=== PATIENT | male | born 1950 | race Caucasian/White ===

== ENCOUNTER 2016-06-17 15:58 | Emergency (ER) | payer OTHER ==
[~2016-06-17] VITALS: Ht 175.3 cm; Wt 109.1 kg
[~2016-06-17 15:58] MED LIST: ALLO300T2 PO; ASPI-973 PO; ATEN25TA PO; Aspirin PO; LACT10SO PO; LISI-571 PO; NITR0.4T6 SL; OMEP20TA86 PO; SILD20TA14 PO
[2016-06-17 16:53] VITALS: BP 174/87; PULSE 79; RESP 16; O2SAT 98
[2016-06-17 17:58] LABS: BASOPHILS % (AUTO) 0.2 % (0-3); EOSINOPHILS % (AUTO) 0.5 % (0-5); MONOCYTES % (AUTO) 6.4 % (4-12); Mean Corpuscular Hemoglobin 37.4 pg (27.0-35.0); Mean Corpuscular Volume 102.8 fL (81-100); NEUTROPHILS % (AUTO) 73.1 % (40-74); Platelet Count 77 bil/L (150-400)
[2016-06-17 19:04] VITALS: BP 164/80; PULSE 79; RESP 21; O2SAT 98
--- NOTE | 2016-06-17 19:21 | ED.REPORT ---
HPI-General Illness Date of Service Jun 17, 2016 ED Provider: Dr. Anson Mccormick D.O. A 65 year old male with a medical history including liver cirrhosis, diabetes, AK, and CAD presents to the ED from his cardiologists office with high blood sugars (504 at home) onset two days ago. Associated symptoms include shakiness, chills, nausea, vomiting, increased thirst, reduced urination, and malaise. The patient denies fever, sore throat, cough, earache, chest pain, or bleeding. He transitioned from prediabetic to completely diabetic two weeks ago, with no medical follow-up for this. Nursing Notes Stated Complaint: ELEVATED BLOOD SUGAR Chief Complaint: General Complaint Nursing Notes Reviewed: Yes Allergies: Coded Allergies: No Known Allergies (Verified Allergy, Unknown, 01/09/16) Scheduled ([Aspirin]) 81 MG TABEC 81 MG PO DAILY Allopurinol (Allopurinol) 300 Mg Tablet 300 MG PO DAILY Aspirin (Aspirin) 81 Mg Tablet 81 MG PO DAILY Atenolol (Atenolol) 25 Mg Tablet 25 MG PO BID Lactulose (Lactulose) 10 Gm/15 Ml Solution 10 GM PO BID Lisinopril (Lisinopril) 5 Mg Tablet 10 MG PO DAILY Nitroglycerin SL (Nitroglycerin SL) 0.4 Mg Tab.subl 0.4 MG SL PRN Omeprazole (Omeprazole) 20 Mg Tablet.dr 20 MG PO DAILY Scheduled PRN Sildenafil Citrate (Sildenafil) 20 Mg Tablet 20 MG PO DIRECTED PRN PRN for sexual activity General Time Seen by MD: 19:21 Chief Complaint Other (High Blood Sugar) Hx Obtained From: Patient Arrived By: Walk-in Sudden in Onset?: No Onset Occurred: 2 days ago Symptom Duration: Since onset Severity: Current: No pain currently Severity: Maximum: No pain Associated with: Reports: Nausea, Vomiting, Denies: Chest pain, Fever Pertinent Negative: Relieved by nothing Context Related History: Reports Coronary artery disease, Reports Diabetes mellitus Recent Healthcare: Recent doctor visit Similar Sx Previous: No Past Medical History Past Medical History Hyperbilirubinemia and transminitis Macrocytic anemia Diabetes [place] Gout Alcohol withdrawal Thrombocytopenia and splenomegaly Right coronary artery disease Liver cirrhosis Reports: Hyperlipidemia, Hypertension Past Surgical History Cardiac stents Reports: CABG Smoking History Never Smoker Social History Alcohol Use: In recovery Drug Use: Denies drug use Other Social History: Ambulatory Status Independent Review of Systems + high blood sugars (504), increased thirst Full Review of Systems Constitutional: Reports: Chills, Malaise, Denies: Fever Ears / Nose / Throat: Denies: Earache bilateral, Sore throat Respiratory: Denies: Non-productive cough Cardiovascular: Denies: Chest pain GI: Reports: Nausea, Vomiting Male: Reports Urination decreased Hematologic: Denies Bleeding Neurologic: Reports: Shaking Complete sys rev & neg: except as marked. Physical Exam Vital Signs Vital Signs Date Time Temp Pulse Resp B/P Pulse Ox O2 Delivery O2 Flow Rate FiO2 06/18/16 00:54 36.9 75 14 144/68 98 Room Air 06/17/16 23:10 37.4 69 11 147/72 98 Room Air 06/17/16 21:06 37.3 70 12 151/67 97 Room Air 06/17/16 19:04 37.5 79 21 164/80 98 Room Air 06/17/16 16:53 36.9 79 16 174/87 98 Room Air Initial VS: Reviewed Head / Eyes: Atraumatic, Normocephalic Neck: Supple, Full range of motion Respiratory: Breath sounds normal, Clear to auscultation, No respiratory distress Extremities: Vascular intact, Neuro intact, No swelling Skin: Warm, Dry, No cyanosis Neurologic: Alert, Oriented, Nonfocal Psychiatric: Mood/affect normal, Behavior normal, Normal thought content General/Constitutional: Awake, Alert, No acute distress ENT: Airway patent Mouth: Positive: Mucous membranes dry Cardiovascular: Regular rhythm, Heart sounds NL Heart Rate / Rhythm: Positive: Tachycardia Abdomen: Soft, Non-tender Organomegaly / Mass / Hernia: Negative: Hepatomegaly Interpretation & Diagnostics Lab Results Interpretation Result Diagram: 06/17/16 1755 06/17/16 2323 Test 06/17/16 17:55 06/17/16 20:20 06/17/16 21:42 06/17/16 21:45 White Blood Count 5.5th/mm3 (3.8-10.1) Red Blood Count 3.21mil/mm3 (4.40-5.80) Hemoglobin 12.0g/dL (13.8-17.2) Hematocrit 33.0% (41.0-50.0) Mean Corpuscular Volume 102.8fL (81-100) Mean Corpuscular Hemoglobin 37.4pg (27.0-35.0) Mean Corpuscular Hemoglobin Concent 36.4% (32.0-37.0) Red Cell Distribution Width 12.0% (12.3-15.4) Platelet Count 77bil/L (150-400) Neutrophils (%) (Auto) 73.1% (40-74) Lymphocytes (%) (Auto) 19.6% (14-46) Monocytes (%) (Auto) 6.4% (4-12) Eosinophils (%) (Auto) 0.5% (0-5) Basophils (%) (Auto) 0.2% (0-3) Total Bilirubin 6.5mg/dL (0.0-1.2) Aspartate Amino Transf (AST/SGOT) 102U/L (0-50) Alanine Aminotransferase (ALT/SGPT) 53U/L (0-44) Alkaline Phosphatase 108U/L (25-160) Total Protein 6.4g/dL (6.4-8.4) Albumin 3.5g/dL (3.4-5.0) Ketones Negative (Negative) Urine Color Dark yellow (YELLOW) Urine Appearance Clear (CLEAR,HAZY) Urine pH 6.0 (5.0-8.0) Urine Specific [place] 1.010 (1.003-1.035) Urine Protein Negativemg/dL (NEG,TRACE) Urine Glucose (UA) 1000mg/dL (NEGATIVE) Urine Ketones Negativemg/dL (NEGATIVE) Urine Occult Blood Negative (NEGATIVE) Urine Nitrite Negative (NEGATIVE) Urine Bilirubin Negative (NEGATIVE) Urine Urobilinogen Normalmg/dL (NORMAL) Urine Leukocyte Esterase Negative (NEGATIVE) Urine RBC 0-2/hpf (0-2) Urine WBC 0-5/hpf (0-5) Urine Epithelial Cells Occasional/hpf (NONE-MOD) Urine Crystals None seen (NONE SEEN) Urine Bacteria None/hpf (NONE-FEW) Urine Hyaline Casts None/lpf (NONE) Urine Granular Casts None seen (NONE SEEN) Urine Waxy Casts None seen (NONE SEEN) Urine Red Blood Cell Casts None seen (NONE SEEN) Urine White Blood Cell Casts None seen (NONE SEEN) Urine Mucus None seen (None Seen) Urine Trichomonas None seen (NONE SEEN) Urine Yeast None (NONE SEEN) Urinalysis Comment None Urine Culture Reflexed Not indicated Troponin T 0.010ug/L (0.0-0.011) Lactic Acid Level 3.1mmol/L (0.4-2.0) Test 06/17/16 23:23 Sodium Level 135mEq/L (134-144) Potassium Level 3.7mEq/L (3.5-5.2) Chloride Level 98mEq/L (97-108) Carbon Dioxide Level 22mmol/L (18-29) Blood Urea Nitrogen 7mg/dL (8-27) Creatinine 0.18mg/dL (0.76-1.27) Estimat Glomerular Filtration Rate 580mL/min (>59) Glucose Level 321mg/dL (60-99) Calcium Level 8.0mg/dL (8.5-10.1) Hold Luna Top Tube Received (Received) ECG Interpretation ECG Interpretation: Time: 19:44 Interpreted by: ED physician Normal ECG Interpretation: Normal ECG w/ rate of... (73) Re-Eval/Medical Decision Med Decision/Clinical Course Type II diabetic presents hyperglycemic. Evidently's been borderline diabetic for while and today's blood sugars were over 500. He was sent in from his offset platemaker for management. He is found to be dehydrated and hyperglycemic however he was not in DKA. He was aggressively fluid resuscitated and was some insulin as well as blood sugar came down nicely. He never developed an anion gap. His lactic acidosis resolved. I consulted with his primary care office. They will be in touch with him tomorrow to make a game plan. He is can start following diabetic diet. Exercise also strongly recommended. He was discharged in stable condition. Serial troponins were drawn there are negative. AK ruled out. No infectious source. I think she can do well with outpatient treatment. Source of Hx: Old records Time of Eval: 00:10 Patient Status: Condition improved Re-Evaluation/Progress Note: Discussed with patient lab results, diagnosis, and plan for discharge. Follow-up and return to the ER instructions given. Patient agrees with plan for care and all questions were addressed. Consultation : Referral / Consult Name: Joey Burns MD Consulted With: Primary care physician Call Returned at: 21:52 Enterprise Account Manager: Will see in office, Agrees with kelvin, Agrees with plan Note: Discussed patient's case with physician continuous pillowcase cutter for Dr. Dukes. Agrees with plan to discharge to be seen tomorrow. Counseled Regarding: Diagnosis, Lab results, Need for follow-up, When/why to return to ED Discharge & Departure Primary Impression: Hyperglycemia due to type 2 diabetes mellitus Additional Impression: Dehydration Disposition: Home Discharge Condition All VS Reviewed: Yes Condition: Stable Patient Instructions: Dehydration (ED), Diabetes Mellitus Type 2 in Adults (DC) Additional Instructions: The laboratory work confirms that you have diabetes. You were significantly dehydrated. You need to drink plenty of liquids without carbohydrates. Youi need to follow the diabetic diet closely. Exercise and weight loss will help. I consulted with Dr. Burns who is continuous pillowcase cutter for Dr. Dukes. The office will contact you tomorrow for follow-up. You will need to be on diabetic medications and most likely have a glucometer and diabetic training. If you have not heard from the office by noon then call the office yourself. . Come back to the emergency department if you have any problems or any worsening or new symptoms. Read the after care instructions given. Referrals: Martha Dukes MD (PCP) Scribe Attestation Portions of this note were transcribed by Ximena Vogel. I, Dr. Mccormick, personally performed the history, physical exam, and medical decision-making; I reviewed and confirmed the accuracy of the information in the transcribed note. Signed by: Eula Osullivan, 06/18/2016, 02:18 copies to: Martha Dukes MD, Todd P DO Jun 17, 2016 19:21 XIMENA VOGEL Jun 17, 2016 20:12
[2016-06-17] MEDS: 0.9% Sodium Chloride 1,000 ML IV SCH ×4 (19:29→21:52)
[2016-06-17 19:58] LABS: TROPONIN T < 0.010 ug/L (0.0-0.011)
[2016-06-17 20:44] LABS: COLOR,URINE DARK YELLOW (YELLOW)
[2016-06-17 20:45] LABS: APPEARANCE,URINE CLEAR (CLEAR,HAZY); OCCULT BLOOD,URINE NEGATIVE (NEGATIVE); UROBILINOGEN,URINE NORMAL (NORMAL)
[2016-06-17 21:06] VITALS: BP 151/67; PULSE 70; RESP 12; O2SAT 97
[2016-06-17] MEDS ORDERED: Insulin Human REGular-Omnicell 100 Unit/mL IV ONE (21:45)
[2016-06-17] MEDS ORDERED: 0.9% Sodium Chloride 1,000 ML IV ONE (22:55)
[2016-06-17 23:10] VITALS: BP 147/72; PULSE 69; RESP 11; O2SAT 98
[2016-06-18 00:54] VITALS: BP 144/68; PULSE 75; RESP 14; O2SAT 98
== END 2016-06-18 00:55 | disposition home or self-care (01) ==
LOC: SED 15:58
DX: E11.65 Type 2 diabetes mellitus with hyperglycemia (principal); E86.0 Dehydration; I25.2 Old myocardial infarction; I25.10 Atherosclerotic heart disease of native coronary artery without angina pectoris; E78.5 Hyperlipidemia, unspecified; I10 Essential (primary) hypertension; Z87.19 Personal history of other diseases of the digestive system; Z95.1 Presence of aortocoronary bypass graft; Z95.818 Presence of other cardiac implants and grafts; Z79.82 Long term (current) use of aspirin
CPT/HCPCS: 36415; 80048; 80053; 81000; 82009; 83605; 84484; 85025; 93005; 96361; 96374; 99285; J1815; J7030

== ENCOUNTER 2016-07-14 14:03 | Emergency (ER) | payer OTHER ==
[~2016-07-14] VITALS: Ht 175.3 cm; Wt 104.5 kg
[2016-07-14 14:10] VITALS: BP 162/84; PULSE 83; RESP 20; O2SAT 98
--- NOTE | 2016-07-14 16:04 | ED.REPORT ---
HPI-Extremity Problem Lower Date of Service Jul 14, 2016 ED Provider: Doc,Ed MD History of Present Illness: pain is in his shoulders and both hips for a week. requesting pain meds so he can sleep. tolerable during the day but worse at night. primary care is Dr. Dukes . taking gil tylenol pm. no fall or injury. works as a business project manager, sits at a desk. day pain 6/10 night pain is 6/10, having trouble sleeping, tossing and turning. As he is trying to sleep, he feels he notices the pain more. Nursing Notes Chief Complaint: Extremity Trauma Nursing Notes Reviewed: Yes Allergies: Coded Allergies: No Known Allergies (Verified Allergy, Unknown, 01/09/16) Scheduled ([Aspirin]) 81 MG TABEC 81 MG PO DAILY Allopurinol (Allopurinol) 300 Mg Tablet 300 MG PO DAILY Aspirin (Aspirin) 81 Mg Tablet 81 MG PO DAILY Atenolol (Atenolol) 25 Mg Tablet 25 MG PO BID Lactulose (Lactulose) 10 Gm/15 Ml Solution 10 GM PO BID Lisinopril (Lisinopril) 5 Mg Tablet 10 MG PO DAILY Nitroglycerin SL (Nitroglycerin SL) 0.4 Mg Tab.subl 0.4 MG SL PRN Omeprazole (Omeprazole) 20 Mg Tablet.dr 20 MG PO DAILY Scheduled PRN Sildenafil Citrate (Sildenafil) 20 Mg Tablet 20 MG PO DIRECTED PRN PRN for sexual activity General Time Seen by MD: 16:02 Chief Complaint Other (wants pain meds to help him sleep) Hx Obtained From: Patient Onset Occurred: 1 week ago Location: : Hip left: Hip right Severity: Current: Pain level 6 out of 10 Past Medical History Past Medical History Hyperbilirubinemia and transminitis Macrocytic anemia Diabetes [place] Gout Alcohol withdrawal Thrombocytopenia and splenomegaly Right coronary artery disease Liver cirrhosis Reports: Hyperlipidemia, Hypertension Past Surgical History Cardiac stents Reports: CABG Smoking History Never Smoker Social History Alcohol Use: In recovery (not for 1 year) Drug Use: Denies drug use Other Social History: Occupation lives with works as a business project manager, 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 Ambulatory Status Independent Review of Systems Basic Review of Systems Eyes: Vision NL, No discharge Hematologic: No bleeding, No bruising Psychiatric: Normal thought content Physical Exam Initial Vital Signs Vital Signs (First) Date Time Temp Pulse Resp B/P Pulse Ox O2 Delivery O2 Flow Rate FiO2 07/14/16 14:10 36.6 83 20 162/84 98 Room Air Initial VS: Reviewed, Vital signs normal General/Constitutional: Well-developed, Well-nourished Head / Eyes: Atraumatic, Normocephalic, PERRL ENT: Mucous membranes moist, Conjunctiva normal, No scleral icterus Neck: Supple, Non-tender, Full range of motion Respiratory: Breath sounds normal, Clear to auscultation, No respiratory distress Cardiovascular: Regular rate & rhythm, Heart sounds normal, Intact distal pulses Abdomen / GI: Soft, Non-tender, No guarding, No rebound, No distention Back: No CVA tenderness Lymphatic: No lymphadenopathy Upper Extremities: Vascular intact, Neuro intact, No swelling, No tenderness Skin: Warm, Dry, No cyanosis Neurologic: Alert, Oriented, Nonfocal Psychiatric: Mood/affect normal, Behavior normal, Normal thought content Lower Extremity / Pelvis / MS: Atraumatic, Inspection NL, Full range of motion , No swelling, Non-tender, No erythema exam of hips do not show any erthyma, swelling., or rash. Has good range of motion. Arms have good range of motion. Able to do overhead movement, caser up strength equal bilateral, no erthyma, muscle wasting or rash noted Respiratory / Chest: Atraumatic, Breath sounds NL, Breath sounds = bilat, No respiratory distress Cardiovascular: Heart rate NL, Regular rhythm, Heart sounds NL Interpretation & Diagnostics Lab Results Interpretation Result Diagram: 07/14/16 1640 07/14/16 1640 Test 07/14/16 16:40 White Blood Count 4.4th/mm3 (3.8-10.1) Red Blood Count 3.14mil/mm3 (4.40-5.80) Hemoglobin 12.0g/dL (13.8-17.2) Hematocrit 31.7% (41.0-50.0) Mean Corpuscular Volume 101.0fL (81-100) Mean Corpuscular Hemoglobin 38.2pg (27.0-35.0) Mean Corpuscular Hemoglobin Concent 37.9% (32.0-37.0) Red Cell Distribution Width 12.7% (12.3-15.4) Platelet Count 80bil/L (150-400) Neutrophils (%) (Auto) 59.9% (40-74) Lymphocytes (%) (Auto) 27.3% (14-46) Monocytes (%) (Auto) 10.8% (4-12) Eosinophils (%) (Auto) 1.6% (0-5) Basophils (%) (Auto) 0.2% (0-3) Erythrocyte Sedimentation Rate 5mm/hr (0-30) Sodium Level 130mEq/L (134-144) Potassium Level 4.7mEq/L (3.5-5.2) Chloride Level 95mEq/L (97-108) Carbon Dioxide Level 21mmol/L (18-29) Blood Urea Nitrogen 11mg/dL (8-27) Creatinine 0.41mg/dL (0.76-1.27) Estimat Glomerular Filtration Rate 224mL/min (>59) Glucose Level 223mg/dL (60-99) Calcium Level 8.9mg/dL (8.5-10.1) Total Bilirubin 3.6mg/dL (0.0-1.2) Aspartate Amino Transf (AST/SGOT) 82U/L (0-50) Alanine Aminotransferase (ALT/SGPT) 45U/L (0-44) Alkaline Phosphatase 140U/L (25-160) C-Reactive Protein 1.0mg/dL (0.0-0.5) Total Protein 6.0g/dL (6.4-8.4) Albumin 3.6g/dL (3.4-5.0) Hold Luna Top Tube Received (Received) Re-Eval/Medical Decision Med Decision/Clinical Course 65 year old male presents to the ER requesting pain medication for shoulder and hip pain in the evening. Patient is very comfortable, states his pain is at a 6 in the day and in the evening. Does not want pain medication in the ER, states it is not bad during the day. In the evening he feels he notices it more because he is trying to sleep. Patient with recent dx of DM about 6 weeks ago. Discharge & Departure Impression: Primary Impression: Uncontrolled diabetes mellitus Additional Impression: Sleeping difficulty Disposition: Home Additional Instructions: Your labs indicate that your diabetes is not under control. Please continue to work on controlling your sugar. Your bilirubin has come down from 6.5 on 2016 to 3.6 today. This will need to be monitored. Your hemoglobin and hemacrit are base line low but are stable. This will need to be monitored also. PLEASE make an appointment with Dr. Dukes to start to address this issues. For your ER concern today, requesting pain medications to help with sleep, the ER does not start this. At this point in time, I am not sure that pain medications are the appropriate category. There are many medications that will make you sleepy and help with chronic pain. Amitriptyline is one that comes to mind. Take 25 mg in the evening. The biggest side effects of this medication is a dry mouth and constipation. Please follow with Dr. Dukes. If this medication is working, she can refill it. If this is not, there are many different medications that may be helpful. Referrals: Martha Dukes MD (PCP) EDSupervising Provider for APC: Michael Weiss MD copies to: Martha Dukes MD, Sue ARNP Jul 14, 2016 16:04
[2016-07-14 16:26] VITALS: BP 170/85; PULSE 81; O2SAT 98
[2016-07-14 16:50] LABS: BASOPHILS % (AUTO) 0.2 % (0-3)
[2016-07-14 16:51] LABS: EOSINOPHILS % (AUTO) 1.6 % (0-5); MONOCYTES % (AUTO) 10.8 % (4-12); Mean Corpuscular Hemoglobin 38.2 pg (27.0-35.0); NEUTROPHILS % (AUTO) 59.9 % (40-74); Platelet Count 80 bil/L (150-400)
[2016-07-14 17:18] LABS: ERYTHROCYTE SEDIMENTATION RATE 5 mm/hr (0-30)
[2016-07-14 17:45] VITALS: BP 163/80; PULSE 82; RESP 16; O2SAT 97
== END 2016-07-14 17:46 | disposition home or self-care (01) ==
LOC: SED 14:03
DX: E11.65 Type 2 diabetes mellitus with hyperglycemia (principal); G47.8 Other sleep disorders; M25.551 Pain in right hip; M25.552 Pain in left hip; I11.9 Hypertensive heart disease without heart failure; I25.10 Atherosclerotic heart disease of native coronary artery without angina pectoris; I25.2 Old myocardial infarction; E11.9 Type 2 diabetes mellitus without complications; E78.5 Hyperlipidemia, unspecified; Z95.1 Presence of aortocoronary bypass graft; Z95.5 Presence of coronary angioplasty implant and graft; Z79.82 Long term (current) use of aspirin

== ENCOUNTER 2016-10-04 19:28 | Emergency (ER) | payer OTHER ==
[~2016-10-04] VITALS: Ht 175.3 cm; Wt 104.5 kg
[2016-10-04 19:33] VITALS: BP 92/57; PULSE 65; RESP 17; O2SAT 98
--- NOTE | 2016-10-04 21:25 | ED.REPORT ---
HPI-Back Pain 40 and Over Date of Service October 04, 2016 ED Provider: Evin Patino MD The patient is a 66 year old male w/ recently diagnosed DM and back arthritis who presents to the ED c/o upper and lower back pain onset a few days ago. Last week, they did a series of x-rays determined he had arthritis in his shoulders. He has been taking 2 5mg oxycodone a day for pain, but has run out. He requests a refill to tide him over until his doctor's appointment on Thursday. He last had [address] Dukes filled on 09/23/16. Confirms nausea and vomiting due to pain. Nursing Notes Stated Complaint: PAIN MANAGEMENT Chief Complaint: Back Pain or Injury Nursing Notes Reviewed: Yes Allergies: Coded Allergies: No Known Allergies (Verified Allergy, Unknown, 01/09/16) Scheduled ([Aspirin]) 81 MG TABEC 81 MG PO DAILY Allopurinol (Allopurinol) 300 Mg Tablet 300 MG PO DAILY Aspirin (Aspirin) 81 Mg Tablet 81 MG PO DAILY Atenolol (Atenolol) 25 Mg Tablet 25 MG PO BID Lactulose (Lactulose) 10 Gm/15 Ml Solution 10 GM PO BID Lisinopril (Lisinopril) 5 Mg Tablet 10 MG PO DAILY Nitroglycerin SL (Nitroglycerin SL) 0.4 Mg Tab.subl 0.4 MG SL PRN Omeprazole (Omeprazole) 20 Mg Tablet.dr 20 MG PO DAILY Scheduled PRN Oxycodone (Roxicodone) 5 Mg Tablet 5 MG PO Q4H PRN PRN For Pain Sildenafil Citrate (Sildenafil) 20 Mg Tablet 20 MG PO DIRECTED PRN PRN for sexual activity General Time Seen by MD: 21:24 Chief Complaint Back pain Hx Obtained From: Patient Arrived By: Walk-in Sudden in Onset?: Yes Onset Occurred: 2 days ago Symptom Duration: Since onset Location: : Spinal lumbar area: Spinal thoracic area Quality: Painful Severity: Current: Moderate Recent Healthcare: Recent doctor visit Similar Sx Previous: Yes Past Medical History Past Medical History Hyperbilirubinemia and transminitis Macrocytic anemia Diabetes [place] Gout Alcohol withdrawal Thrombocytopenia and splenomegaly Right coronary artery disease Liver cirrhosis Reports: Hyperlipidemia, Hypertension Past Surgical History Cardiac stents Reports: CABG Smoking History Never Smoker Social History Alcohol Use: In recovery Drug Use: Denies drug use Other Social History: 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 Physical Exam Initial Vital Signs Vital Signs (First) Date Time Temp Pulse Resp B/P Pulse Ox O2 Delivery O2 Flow Rate FiO2 10/04/16 19:33 36.1 65 17 92/57 98 Room Air Initial VS: Reviewed General/Constitutional: Awake, Alert, Cooperative, Not toxic appearing ambulatory with an antalgic gait Respiratory / Chest: Atraumatic, Breath sounds NL, Breath sounds = bilat, No respiratory distress Cardiovascular: Heart rate NL, Regular rhythm, Heart sounds NL, No gallop, No murmurs, No rubs Abdomen: Soft, Non-tender Flank / Spine / Paraspinal: Positive: Lumbar spine tender... Neurologic: Oriented X3, Speech NL, No motor deficits Lower Extremity / Pelvis / MS: Full range of motion, No deformity Upper Extremity / MS: Full range of motion, No deformity Ankle / Foot: Full range of motion ankle extension 5/5 sensation normal Re-Eval/Medical Decision Counseled Regarding: Diagnosis, Lab results, Need for follow-up, When/why to return to ED Discharge & Departure Impression: Primary Impression: Low back pain Chronicity: chronic Back pain laterality: midline Sciatica presence: without sciatica Qualified Code: M54.5 - Low back pain Disposition: Home Discharge Condition All VS Reviewed: Yes Condition: Stable Additional Instructions: I am sending you home with some oxycodone that will last until you see Dr. Dukes. We will not do this again. continue previous home medications. contact Dr Ernst scott. Referrals: Martha Dukes MD (PCP) Scribe Attestation Portion of this note were transcribed by Angela Tamayo. I, , personally performed the history, physical exam, and medical decision-making: I reviewed and confirmed the accuracy for the information in the transcribed note. Signed by: leandro Jo, 10/04/16 2200 copies to: Martha Dukes MD, Donald L MD October 04, 2016 21:25 Angela Tamayo October 04, 2016 21:32
[2016-10-04] MEDS ORDERED: oxyCODONE-Acetamin 5-325 mg Tablet PO ONE (21:35)
[2016-10-04] MEDS ORDERED: OXYC-474 PO (21:55)
[2016-10-04 22:07] VITALS: BP 130/69; PULSE 68; RESP 20; O2SAT 97
== END 2016-10-04 22:08 | disposition home or self-care (01) ==
LOC: SED 19:28
DX: M54.5 Low back pain (principal); R11.2 Nausea with vomiting, unspecified; E11.9 Type 2 diabetes mellitus without complications; I25.2 Old myocardial infarction; I25.10 Atherosclerotic heart disease of native coronary artery without angina pectoris; E78.5 Hyperlipidemia, unspecified; I10 Essential (primary) hypertension; Z79.82 Long term (current) use of aspirin; Z95.5 Presence of coronary angioplasty implant and graft; Z95.1 Presence of aortocoronary bypass graft